=== PATIENT | male | born 1955 | race Caucasian/White ===

== ENCOUNTER → 2022-07-07 | Outpatient (CLI) | payer BC, MEDICARE, OTHER, SELFPAY ==
[~2022-07-07] MED LIST: ACET-897 PO; ALBU20IN INH; ATOR40TA75 PO; BICA50TA9 PO; DILT180C70 PO; GABA-1171 PO; LISI20TA33 PO; SOTA120T PO
== END ==
LOC: M ONCR 13:52
PROVIDERS: ATTEND General Practice
DX: C61 Malignant neoplasm of prostate (principal); M25.552 Pain in left hip; Z80.1 Family history of malignant neoplasm of trachea, bronchus and lung; Z79.51 Long term (current) use of inhaled steroids; Z79.1 Long term (current) use of non-steroidal anti-inflammatories (NSAID); Z79.899 Other long term (current) drug therapy

== ENCOUNTER → 2022-07-15 | Outpatient (CLI) | payer MEDICARE ==
[~2022-07-15] MED LIST changes: +LEUPROLIDE 45MG SYRINGE KIT (LUPRON DEPOT) (FOR ONCOLOGY) IM ONE
[2022-07-15 14:07] VITALS: BP 152/84
== END ==
LOC: M ONCR 13:33
PROVIDERS: ATTEND General Practice
DX: C61 Malignant neoplasm of prostate (principal)
CPT/HCPCS: 96372; G0463; J9217

== ENCOUNTER 2022-08-06 08:17 | Outpatient (RCR) | payer MEDICARE ==
[~2022-08-06 08:17] MED LIST changes: -LEUPROLIDE 45MG SYRINGE KIT (LUPRON DEPOT) (FOR ONCOLOGY) IM ONE
== END 2022-08-10 ==
LOC: M ONCR 08:17
PROVIDERS: ATTEND General Practice
DX: C61 Malignant neoplasm of prostate (principal)

== ENCOUNTER → 2022-11-03 | Outpatient (CLI) | payer MEDICARE ==
[~2022-11-03] MED LIST changes: -ALBU20IN INH; +ALBU5SOL7 INH
== END ==
LOC: M ONCR 08:45
PROVIDERS: ATTEND General Practice
DX: C61 Malignant neoplasm of prostate (principal); Z79.818 Long term (current) use of other agents affecting estrogen receptors and estrogen levels; Z79.899 Other long term (current) drug therapy; Z88.8 Allergy status to other drugs, medicaments and biological substances; Z92.3 Personal history of irradiation